=== PATIENT | female | born 1970 | race Caucasian/White ===

== ENCOUNTER 2020-01-12 09:37 | Outpatient (CLI) | payer BC, SELFPAY ==
[2020-01-12 10:00] LABS: Basophils Absolute Auto 0.1 K/mm3 (0.0-0.1); Basophils Percent Auto 1.2 % (0.2-1.2); Eosinophils Absolute Auto 0.2 K/mm3 (0-0.3); Eosinophils Percent Auto 1.9 % (0-4.4); Hematocrit 43.5 % (37.0-47.0); Immature Granulocyte Absolute 0.02 K/mm3 (0.00-0.031); Immature Granulocyte Percent A 0.2 % (0-0.5); Lymphocytes Absolute Auto 2.97 K/mm3 (0.9-3.2); Lymphocytes Percent Auto 29.1 % (18.3-44.2); Mean Corpuscular HGB Conc 34.5 g/dl (32-36); Mean Corpuscular Hemoglobin 31.2 pg (26-34); Mean Corpuscular Volume 90.4 fl (80-100); Mean Platelet Volume 10.6 fl (7.4-10.4); Monocytes Absolute Auto 0.6 K/mm3 (0.1-0.6); Monocytes Percent Auto 5.7 % (2.6-8.5); Neutrophils Absolute Auto 6.3 K/mm3 (1.3-6.7); Neutrophils Percent Auto 61.9 % (45.5-73.1); Platelet Count Result 231 k/mm3 (150-375); Red Blood Count 4.81 M/mm3 (4.2-5.4); Red Cell Distribution Width 12.8 % (11.5-14.5); White Blood Count 10.2 K/mm3 (4.5-10.0)
[2020-01-12 10:12] LABS: Alanine Aminotransferase 45 U/L (4-35); Albumin Level 4.4 g/dL (3.5-5.1); Alkaline Phosphatase 54 U/L (38-126); Anion Gap 4 mmol/L (8-16); Aspartate Amino Transferase 39 U/L (14-36); Bilirubin,Total 0.7 mg/dL (0.2-1.3); Blood Urea Nitrogen 11 mg/dL (7-17); Calcium 9.5 mg/dL (8.4-10.2); Carbon Dioxide 32 mmol/L (22-30); Chloride 103 mmol/L (98-107); Cholesterol 159 mg/dL (0-200); Estimated Glomerular Filt Rate > 60; Glucose 107 mg/dL (65-105); HDL Direct 40 mg/dL; Potassium 4.4 mmol/L (3.4-5.0); Sodium 139 mmol/L (137-145); Triglycerides 142 mg/dL (<150)
[2020-01-12 10:42] LABS: LDL Cholesterol Direct 96 mg/dL
[2020-01-12 11:19] LABS: Folic Acid 9.6 ng/mL (2.76->20)
== END 2020-01-12 09:38 | disposition home or self-care (01) ==
PROVIDERS: PCP Internal Medicine; Visit Provider Internal Medicine
DX: R53.83 Other fatigue (principal)
CPT/HCPCS: 36415; 80053; 80061; 82607; 82746; 84443; 85025

== ENCOUNTER 2020-10-13 14:00 | Outpatient (RCR) | payer BC, SELFPAY ==
--- NOTE | 2020-09-08 15:19 | PTOPEVAL ---
PHYSICAL THERAPY EVALUATION AND PLAN OF CARE 09-08-20 Thank you for referring Federica Goldstein to [facility] for the diagnosis of vestibular rehab. She is scheduled to be seen for therapy? 1-2 x/week for 5 weeks. Please review, sign, date and return this plan of care LUPE. I agree with and certify that the following plan of care is medically necessary. Referring Physician Date Attending Provider: Meek Dove MD CC: to Dr. Russell, per pt request, her general physician PT Outpatient Evaluation Document 09/08/20 14:10 NAEEM (Rec: 09/08/20 15:19 NAEEM [id number]) Past Medical History Source of Past Medical History Patient Neurological History Hx Neurological Disorders No Significant History Cardiovascular History Hx Cardiac Disorders No Significant History Respiratory History Hx Respiratory Disorders No Significant History Gastrointestinal History Hx Gastroesophageal Reflux Disease Yes Genitourinary History Hx Genitourinary Disorders No Significant History Musculoskeletal History Hx Other Musculoskeletal Disorders Yes: TMJ pain after sleeping in recliner with COVID R > L side; Endocrine History Hx Endocrine Disorders No Significant History HEENT History Hx Other HEENT Disorders Yes: wear bifocals; Other History Hx Other Medical Conditions Yes: COVID in Feb 2020, about 2 weeks for recovery, slept 14 hr/day Evaluation Information Problem Diagnosis BPPV/ vestibular Onset Apr 2020 Prior Level of Function Activity Level (Last 3 Months) Occupation medical laborer cook house in [employer] , active-schedule, work with animals,lab work Activity of Daily Living Ability Independent Indoor/Home Mobility Independent Community Mobility Independent Stairs Ability Independent Functional Cognition (Planning, Shopping Independent , Taking Medications) Cooking Yes Cleaning Yes Laundry Yes Shopping Yes Driving Yes Comments Additional Prior Level of Function work 55-60 hours/week, super Comments busy at work; tends to avoid bending forward and being as active with movement of her head; have gained 40# over past few years, due to stress and of her parents; Pain Assessment Timing of Pain Assessment Timing of Pain Assessment Assessment Self Report Self Report Pain Level
--- NOTE | 2020-10-13 14:43 | PTOPEVAL ---
PHYSICAL THERAPY DISCHARGE 10-13-20 Refer to the clinical summary below. All of the goals were achieved; discharge PT services. Thank you for referring Federica Goldstein to [facility] Please review, sign, date and return this Discharge report LUPE. I agree with and certify that the following plan of care is medically necessary. Referring Physician Date Attending Provider: Meek Dove MD CC: Dr Russell, pt general physician, per pt request Document 10/13/20 14:05 NAEEM (Rec: 10/13/20 14:43 NAEEM [id number]) Assessment Status Discharge Subjective Information Federica reports: have some Query Text:As Reported By Patient/ nasal congestion and drainage, Family cold/ allergy; not having any dizziness; L ear is bothering me- when blew my nose, it popped and bulged out ; no problems at work, using the computer, busy worked 13 hours- did all day yesterday without any problems; no problems with lying down and sitting up; no longer have any head tightening or squeezing symptome; when she is tired, has to stop and rest, cannot keep pushing on, like she used to do; she sleeps about 6&1/ 2 to 7 hr/night, but when on vacation slept about 9 hours per night; agreed to discharge from PT services. Pain Assessment Timing of Pain Assessment Timing of Pain Assessment Assessment Self Report Self Report Pain Level 0 Pain Score Pain Score 0: Self Report Vestibular Evaluation Vestibular Testing Vestibular Testing Comments standing: head motion R/L x 5 reps s/s; stand on foam: head R/L and up /down x 5 reps; march in place with eyes open and closed x 10 reps; trunk rotation R/L x 3 reps walking with PT behind her, pt reach to R, grab playing card , state card and return to the L side; PT walking in front of pt; presenting playing card towards her from all angles, pt state card correctly walk h
== END 2020-11-22 13:03 | disposition home or self-care (01) ==
LOC: ANHPT 14:00
PROVIDERS: PCP Internal Medicine; Visit Provider Otolaryngology
DX: R26.89 Other abnormalities of gait and mobility (principal); R42 Dizziness and giddiness
CPT/HCPCS: 97110; 97161

== ENCOUNTER → 2020-10-22 03:44 | Outpatient (CLI) | payer BC, SELFPAY ==
[2020-10-23 01:34] LABS: SARS-CoV-2 RNA PCR Negative
== END ==
PROVIDERS: PCP Internal Medicine; Visit Provider Internal Medicine
DX: Z20.822 Contact with and (suspected) exposure to COVID-19 (principal); J06.9 Acute upper respiratory infection, unspecified
CPT/HCPCS: C9803; U0003; U0005

== ENCOUNTER 2020-10-25 11:15 | Outpatient (CLI) | payer BC, SELFPAY ==
--- NOTE | ~2020-10-25 | XR_ITS ---
EXAMINATION: XR chest 2V DATE: 10/25/2020 11:36 INDICATION: Cough, shortness of breath TECHNIQUE: PA and lateral views of the chest were obtained. COMPARISON: Chest radiograph dated 07/26/2018 FINDINGS: The lungs remain clear with no focal airspace opacities, pulmonary edema, pleural effusion or pneumot horax. The cardiomediastinal silhouette is normal. Mild thoracic spondylosis. IMPRESSION: 1. No acute cardiopulmonary disease. Reviewed, dictated and finalized at location A.
== END 2020-10-25 11:16 | disposition home or self-care (01) ==
LOC: ANHIMG 11:18
PROVIDERS: PCP Internal Medicine; Visit Provider Internal Medicine
DX: R05 Cough (principal); R06.02 Shortness of breath
CPT/HCPCS: 71046

== ENCOUNTER 2020-10-27 20:38 | Emergency (ER) | payer BC, SELFPAY ==
--- NOTE | ~2020-10-27 | XR_ITS ---
XR chest 2V DATE: 10/27/2020 21:08 INDICATION: Palpitations for one week. Sinus issues for 2 weeks. TECHNIQUE: PA and lateral views COMPARISON: 10/25/2020 2 view chest FINDINGS: Normal heart size. Minimal aortic unfolding. No hilar or mediastinal enlargement. No pulmonary infiltrate or consolidation, pleural effusion or pulmonary vascular congestion or pneumo thorax. There is mild dextroscoliosis and degenerative spurring of the thoracic spine. IMPRESSION: No active cardiopulmonary disease Reviewed, dictated and finalized at location A.
[2020-10-27 20:43] VITALS: BP 184/80; PULSE 64; RESP 18; TEMP 36.3; O2SAT 100
--- NOTE | 2020-10-27 20:47 | ECG_ITS ---
Measurements Intervals [place] Rate: 69 P: 30 SD: 158 QRS: -61 QRSD: 97 T: 34 QT: 389 QTc: 419 Interpretive Statements SINUS RHYTHM LEFT AXIS DEVIATION INCOMPLETE RIGHT BUNDLE BRANCH BLOCK POOR R WAVE PROGRESSION, ANTERIOR LEADS BASELINE ARTIFACT- I, II, III, AVR, AVL, AVF BORDERLINE ECG Electronically Signed On 10-28-2020 6:41:28 CDT by Manuel Groves D.O.
[2020-10-27 21:01] LABS: Basophils Absolute Auto 0.1 K/mm3 (0.0-0.1); Basophils Percent Auto 1.1 % (0.2-1.2); Eosinophils Absolute Auto 0.2 K/mm3 (0-0.3); Eosinophils Percent Auto 1.8 % (0-4.4); Hemoglobin 14.2 g/dL (12.0-15.0); Immature Granulocyte Absolute 0.02 K/mm3 (0.00-0.031); Immature Granulocyte Percent A 0.2 % (0-0.5); Lymphocytes Absolute Auto 3.72 K/mm3 (0.9-3.2); Lymphocytes Percent Auto 33.5 % (18.3-44.2); Mean Corpuscular HGB Conc 32.3 g/dl (32-36); Mean Platelet Volume 11.1 fl (7.4-10.4); Monocytes Absolute Auto 0.8 K/mm3 (0.1-0.6); Monocytes Percent Auto 7.6 % (2.6-8.5); Neutrophils Absolute Auto 6.2 K/mm3 (1.3-6.7); Neutrophils Percent Auto 55.8 % (45.5-73.1); Platelet Count Result 224 k/mm3 (150-375); Red Blood Count 4.73 M/mm3 (4.2-5.4); White Blood Count 11.1 K/mm3 (4.5-10.0)
[2020-10-27 21:11] LABS: Prothrombin Time 12.6 Seconds (11.1-14.7)
[2020-10-27 21:14] LABS: Anion Gap 6 mmol/L (8-16); Blood Urea Nitrogen 16 mg/dL (7-17); Calcium 9.2 mg/dL (8.4-10.2); Carbon Dioxide 30 mmol/L (22-30); Chloride 104 mmol/L (98-107); Estimated CRCL calculation 70 ml/min; Estimated Glomerular Filt Rate > 60; Glucose 95 mg/dL (65-110); Sodium 140 mmol/L (137-145)
[2020-10-27 21:26] LABS: Troponin I < 0.012 ng/mL (0.000-0.034)
[2020-10-27 23:35] VITALS: BP 192/107; PULSE 66; RESP 12; TEMP 36.8; O2SAT 100
[2020-10-27] MEDS: ASPIRIN 81 MG CHEWABLE TABLET 324 MG PO (23:45)
[2020-10-27 23:46] VITALS: BP 170/87; PULSE 56; RESP 18; O2SAT 98
--- NOTE | 2020-10-28 00:39 | ED.ARRPALP ---
HPI - Arrhythmia/Palpitations General Chief Complaint: Arrhythmia/Palpitations Stated Complaint: cold sx, heart palpitations, shortness of breath Time Seen by Provider: 10/27/20 23:33 Source: patient History of Present Illness HPI narrative: Patient presents with concerns for palpitations. Patient reports she has had mild congestion and runny nose the beginning of the month which seemed to subside however over the past week or so she has noted increased fatigue shortness of breath and intermittent palpitations in her chest. First becomes more tired with her day-to-day activities. There is no associated chest pain no lightheadedness there is no fevers recent cough, her congestion has resolved. She denies abdominal pain. Related Data Allergies Allergy/AdvReac Type Severity Reaction Status Date / Time Penicillins Allergy Unknown Other Verified 10/27/20 23:44 Review of Systems Review of Systems: CONSTITUTIONAL: Denies fever, chills, or sweats. EYES: Denies visual changes, redness, or discharge. ENT: Denies rhinorrhea, congestion, sore throat, or otalgia. CARDIOVASCULAR: Denies chest pain, or edema. RESPIRATORY: Denies cough or dyspnea. GASTROINTESTINAL: Denies abdominal pain, nausea, vomiting, or diarrhea. GENITOURINARY: Denies dysuria or hematuria. SKIN: Denies rash or itching. MUSCULOSKELETAL: Denies back pain, joint pain, or myalgia. NEUROLOGIC: Denies headache, numbness, dizziness, or weakness. PSYCHIATRIC: Denies anxiety or depression. All systems reviewed & are unremarkable except as noted in HPI and below PMFSH Family History Family History Mother Patient's mother is in good health Father Patient's father is in good health Sibling Patient's brother is in good health Social History Social History Smoking status: Former smoker Second hand tobacco smoke exposure: No Smoking end date: 03/12/85 Alcohol intake: current Exam Narrative: GENERAL: Well-appearing, well-nourished, and in no acute distress. HEAD: Normocephalic, atraumatic. EYES: PERRLA and EOMI. ENT: Nares clear, no rhinorrhea or epistaxis. Mucous membranes moist. NECK: Supple. No masses. No JVD CHEST: Clear to auscultation. No respiratory distress. No wheezes rales or rhonchi HEART: Regular rate and rhythm. No murmur heard. Normal peripheral pulses. ABDOMEN: Soft, nontender, nondistended, normal active bowel sounds. EXTREMITIES: Normal range of motion. No edema. SKIN: Warm, dry, no rash. NEURO: No focal deficits. Alert and oriented x3. PSYCH: Normal mood and affect. Course Reevaluation(s) Reevaluation #1: patient resting comfortably, no arrhythmias captures, labs, img, plan reviewed with question. she is comfortable with the out patient plan. Date: 10/28/20 Time: 04:06 Vital Signs Vital signs: Vital Signs Temperature 36.3 C L 10/27/20 20:43 Pulse Rate 64 10/27/20 20:43 Respiratory Rate 18 10/27/20 20:43 Blood Pressure 184/80 H 10/27/20 20:43 Pulse Oximetry 100 10/27/20 20:43 Temperature 36.8 C 10/27/20 23:35 Pulse Rate 63 10/28/20 03:55 Respiratory Rate 13 10/28/20 03:55 Blood Pressure 142/73 H 10/28/20 03:55 Pulse Oximetry 99 10/28/20 03:55 MDM - Arrhythmia/Palpitations MDM Narrative Medical decision making narrative: H&P as above, vs with hypertension, pt looks clinically well, exam reassuring, labs elevation in TSH, img 25 unremarkable, EKG clinically unremarkable, no arrhythmias captured on cardiac catheterization technologist additional labs/img considered, symptomatic relief available as needed, on reevaluation pt continues to looks clinically well. Suspect hypothyroidism contributing to fatigue, dns ACS, PE, pneumonia, severe sepsis. plan to tx/monitor as op w/ pcm f/u findings/plan discussed with pt, pt agree/comfortable with plan, return precautions given Lab Data Result diagrams: 10/27/20 20:53
[2020-10-28 00:53] VITALS: BP 162/92; PULSE 58; RESP 14; O2SAT 99
[2020-10-28 01:31] VITALS: BP 144/88; PULSE 68; RESP 15; O2SAT 98
[2020-10-28 02:01] VITALS: BP 156/78; PULSE 63; RESP 15; O2SAT 99
[2020-10-28 02:16] VITALS: BP 166/94; PULSE 72; RESP 15; O2SAT 100
[2020-10-28 02:26] LABS: Troponin I < 0.012 ng/mL (0.000-0.034)
[2020-10-28 02:31] VITALS: BP 157/95; PULSE 55; RESP 16; O2SAT 98
--- NOTE | 2020-10-28 03:20 | PC.NURSE ---
Assumed care of pt at this time. Pt resting on stretcher, A&Ox4. Updated pt on POC.
[2020-10-28 03:52] LABS: Free T4 Free Thyroxine Reflex 1.14 ng/dL (0.78-2.19)
[2020-10-28 03:55] VITALS: BP 142/73; PULSE 63; RESP 13; O2SAT 99
[2020-10-28 04:51] LABS: Total Triiodothyronine (T3) 1.25 NG/ML (0.97-1.69)
== END 2020-10-28 04:30 | disposition home or self-care (01) ==
PROVIDERS: Family Medicine; Emergency Provider Emergency Medicine; PCP Internal Medicine
DX: R00.2 Palpitations (principal); E03.9 Hypothyroidism, unspecified; Z87.891 Personal history of nicotine dependence; I45.10 Unspecified right bundle-branch block; R94.31 Abnormal electrocardiogram [ECG] [EKG]
CPT/HCPCS: 36415; 71046; 80048; 84439; 84443; 84480; 84484; 85025; 85610; 85730; 93005; 99284; A9270

== ENCOUNTER 2020-12-08 08:57 | Outpatient (CLI) | payer BC, SELFPAY ==
--- NOTE | 2020-12-08 09:27 | ECHO_ITS ---
Patient Info Name: Federica Goldstein Age: 50 years : 1970 Gender: Female Ht: 62 in Wt: 210 lbs BSA: 2.09 m2 HR: 47 bpm BP: 139 / 88 mmHg Technical Quality: Good Exam Date: 12/08/2020 9:36 AM Exam Location: [facility] Patient Status: Outpatient Admit Date: 12/08/2020 Staff Ordering Physician: Manuel Groves DO Filter Tender Jelly: Vale Vyas RDCS Attending Provider: Manuel Groves DO Referring Physician: Germain NAM; Exam Type: CA echo doppler color flow Study Info Indications - palpitations Complete two-dimensional, color flow and Doppler transthoracic echocardiogram is performed. Summary 1. Complete two-dimensional, color flow and Doppler transthoracic echocardiogram is performed. 2. Left ventricular chamber dimension is normal. 3. Left ventricular systolic function is normal, estimated at 65-70%. 4. The left ventricular diastolic function is normal. 5. E/e' 9 is minimally elevated. 6. Global longitudinal strain is normal at -21.1%. 7. There is trace mitral valve regurgitation. 8. There is mild tricuspid valve regurgitation. 9. No pulmonary hypertension, estimated pulmonary arterial systolic pressure is 30 mmHg. Left Ventricle E/e' 9 is minimally elevated. Global longitudinal strain is normal at -21.1%. Left ventricular chamber dimension is normal. Left ventricular systolic function is normal, estimated at 65-70%. The left ventricular diastolic function is normal. Right Ventricle Right ventricular chamber dimension is normal. Right ventricular systolic function is normal. Left Atria Left atrial chamber dimension is normal. Right Atria Right atrial chamber dimension is normal. Aortic Valve The aortic valve is trileaflet. There is no aortic valve stenosis. There is no aortic valve regurgitation. Pulmonic Valve There is no pulmonic regurgitation. Mitral Valve There is no mitral valve stenosis. There is trace mitral valve regurgitation. Tricuspid Valve There is mild tricuspid valve regurgitation. No pulmonary hypertension, estimated pulmonary arterial systolic pressure is 30 mmHg. Pericardium/Pleural There is no pericardial effusion. Inferior Vena Cava Normal inferior vena cava with >50% collapse upon inspiration consistent with normal right atrial pressure, 5 mmHg. Aorta The aortic root size at the sinus of Valsalva is normal. Left Ventricular Outflow Tract Name Value Normal LVOT 2D LVOT Diameter 2.0 cm LVOT Doppler LVOT Peak Gradient 5 mmHg LVOT Mean Gradient 2 mmHg LVOT VTI 27 cm LVOT VTI/AV VTI Ratio 0.8 LVOT Stroke Volume 88 ml LVOT CO 14.0 l/min LVOT CI 6.7 l/min/m2 Pulmonic Valve Name Value Normal PV Doppler
--- NOTE | 2020-12-08 10:27 | EST_ITS ---
Patient Info Name: Federica Goldstein Age: 50 years : 1970 Gender: Female Ht: 62 in Wt: 210 lbs BSA: 2.09 m2 HR: 80 bpm BP: 104 / 83 mmHg Heart Rhythm: Sinus Rhythm Exam Date: 12/08/2020 10:36 AM Exam Location: [facility] Stress Patient Status: Outpatient Admit Date: 12/08/2020 Staff Ordering Physician: Manuel Groves DO Attending Provider: Manuel Groves DO Exercise Technologist: Josie Mtz CT Exercise Physician: Manuel Groves DO Exam Type: CA stress test treadmill Study Info An exercise stress test was performed. Summary 1. 1. Negative [place] exercise stress test for ischemic ST changes by ECG criteria. 2. 2. Good functional capacity, achieving 10 METs of workload. 3. 3. Appropriate HR response to exercise. 4. 4. Appropriate HR recovery at 1 minute post exercise. 5. 5. No imaging with stress testing. 6. 6. Patient informed of the above results. Protocol: [place] Stress ECG Details Stage: REST Duration (min): 1 min : 3 sec Speed (mph): 0.0 Grade (%): 0 HR (bpm): 53 SBP (mmHg): 121 DBP (mmHg): 84 METS: --- Stage: REST Duration (min): 1 min : 29 sec Speed (mph): 0.0 Grade (%): 0 HR (bpm): 56 SBP (mmHg): 121 DBP (mmHg): 84 METS: --- Stage: REST Duration (min): 13 min : 12 sec Speed (mph): 0.0 Grade (%): 0 HR (bpm): 55 SBP (mmHg): 121 DBP (mmHg): 84 METS: --- Stage: STAGE 1 Duration (min): 1 min : 0 sec Speed (mph): 1.7 Grade (%): 10 HR (bpm): 88 SBP (mmHg): 121 DBP (mmHg): 84 METS: --- Stage: STAGE 1 Duration (min): 2 min : 0 sec Speed (mph): 1.7 Grade (%): 10 HR (bpm): 101 SBP (mmHg): 121 DBP (mmHg): 84 METS: --- Stage: STAGE 1 Duration (min): 3 min : 0 sec Speed (mph): 1.7 Grade (%): 10 HR (bpm): 101 SBP (mmHg): 160 DBP (mmHg): 88 METS: --- Stage: STAGE 2 Duration (min): 1 min : 0 sec Speed (mph): 2.5 Grade (%): 12 HR (bpm): 116 SBP (mmHg): 160 DBP (mmHg): 88 METS: --- Stage: STAGE 2 Duration (min): 2 min : 0 sec Speed (mph): 2.5 Grade (%): 12 HR (bpm): 128 SBP (mmHg): 200 DBP (mmHg): 88 METS: --- Stage: STAGE 2 Duration (min): 3 min : 0 sec Speed (mph): 2.5 Grade (%): 12 HR (bpm): 133 SBP (mmHg): 200 DBP (mmHg): 88 METS: --- Stage: STAGE 3 Duration (min): 1 min : 0 sec Speed (mph): 3.4 Grade (%): 14 HR (bpm): 145 SBP (mmHg): 200 DBP (mmHg): 88 METS: --- Stage: STAGE 3 Duration (min): 2 min : 0 sec Speed (mph): 3.4 Grade (%): 14 HR (bpm): 151 SBP (mmHg): 199 DBP (mmHg): 96 METS: --- Stage: STAGE 3 Duration (min): 2 min : 11 sec Speed (mph): 3.4 Grade (%): 14 HR (bpm): 152 SBP (mmHg): 199 DBP (mmHg): 96 METS: --- Stage: RECOVERY Duration (min): 0 min : 48 sec
== END 2020-12-08 08:58 | disposition home or self-care (01) ==
PROVIDERS: PCP Internal Medicine; Visit Provider Internal Medicine Cardiovascular Disease
DX: R07.9 Chest pain, unspecified (principal); R00.2 Palpitations
CPT/HCPCS: 93017; 93306

== ENCOUNTER 2021-01-18 16:32 | Outpatient (CLI) | payer BC, SELFPAY ==
--- NOTE | ~2021-01-18 | XR_ITS ---
XR lumbar spine 6V w bending 01/18/2021 17:18 Indication: Low back pain Procedure: 7 views lumbar spine Comparison: No prior studies for comparison. Findings: Normal lumbar lordosis. Mild facet hypertrophy are present at L4-5 and L5-S1. No significan t alteration of alignment with flexion/extension. No spondylolisthesis. Mild disc narrowing at L5-S1 and L3-4. There is bilateral L5 spondylolysis without spondylolisthesis. 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 Reviewed, dictated and finalized at location A. 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
--- NOTE | ~2021-01-18 | XR_ITS ---
XR hip RT 2V w AP pelvis 01/18/2021 17:18 Indication: Right hip and groin pain Procedure: AP pelvis and 3 views right hip Comparison: No prior studies for comparison. Findings: Mild bilateral osteoarthritis of the hips. No fracture, subluxation or dislocation. Sacral foramen are symmetric. Pelvic rings are intact. No soft tissue abnormality. Impression: 1: Mild symmetric osteoarthritis of the hips. Reviewed, dictated and finalized at location A. TAL PROJECT COORDINATOR Impression: 1: Mild symmetric osteoarthritis of the hips.
== END 2021-01-18 16:33 | disposition home or self-care (01) ==
LOC: ANHIMG 16:38
PROVIDERS: PCP Internal Medicine; Visit Provider Physician Assistant
DX: R10.31 Right lower quadrant pain (principal); M16.0 Bilateral primary osteoarthritis of hip; M47.816 Spondylosis without myelopathy or radiculopathy, lumbar region
CPT/HCPCS: 72114; 73502

== ENCOUNTER 2021-01-20 09:45 | Outpatient (CLI) | payer BC, SELFPAY ==
--- NOTE | 2021-01-21 13:41 | WPDPFTINT ---
PFT Procedure Performed PFT Procedure Performed Spirometry with Pre/Post Bronchodilator Plethysmography (Lung Vol) Diffusing Cap (DLCO) Flow Vol Loop PFT Interpretation Lung volumes were measured with the body plethysmography method. The lung volumes are unremarkable. Spirometry showed normal expiratory flow rates and a normal FEV1 to FVC ratio of 85%. Following administration of a bronchodilator, there was no significant increase in expiratory flow rates. Lung diffusion capacity is within the normal range at 84% predicted. The flow volume loop is unremarkable. Impression: Lung volumes, spirometry, and lung diffusion capacity all within the normal range.
== END 2021-01-20 09:46 | disposition home or self-care (01) ==
LOC: ANHPFT 09:50
PROVIDERS: PCP Internal Medicine; Visit Provider Internal Medicine Pulmonary Disease
DX: R06.02 Shortness of breath (principal)
CPT/HCPCS: 94060; 94726; 94729

== ENCOUNTER → 2021-11-05 00:43 | Outpatient (CLI) | payer BC, SELFPAY ==
[2021-11-05 12:05] LABS: Influenza A QL RT-PCR Negative (Negative); Influenza B QL RT-PCR Negative (Negative); SARS-CoV-2 RNA PCR Negative
== END ==
PROVIDERS: PCP Internal Medicine; Visit Provider Internal Medicine
DX: R68.89 Other general symptoms and signs (principal); Z20.822 Contact with and (suspected) exposure to COVID-19
CPT/HCPCS: 87502; C9803; U0003; U0005

== ENCOUNTER → 2021-11-08 10:35 | Outpatient (CLI) | payer BC, SELFPAY ==
--- NOTE | ~2021-11-08 | XR_ITS ---
XR chest 2V DATE: 11/08/2021 10:47 INDICATION: Cough TECHNIQUE: 2 views COMPARISON: 10/27/2020 PA and lateral chest FINDINGS: Normal heart size. No hilar or mediastinal enlargement. No pulmonary infiltrate or consolid ation, pleural effusion or pulmonary vascular congestion or pneumothorax. Mild thoracic dextroscoliosis and degenerative spurring. IMPRESSION: No active cardiopulmonary disease Reviewed, dictated and finalized at location B.
== END ==
PROVIDERS: PCP Internal Medicine; Visit Provider Internal Medicine
DX: R05.9 Cough, unspecified (principal)
CPT/HCPCS: 71046

== ENCOUNTER 2023-05-17 09:29 | Outpatient (CLI) | payer BC, SELFPAY ==
--- NOTE | ~2023-05-17 | MM_ITS ---
EXAMINATION: MM screening [facility] BI w joseph HISTORY: Screening mammogram TECHNIQUE: Craniocaudal and mediolateral oblique 3-D tomosynthesis images were obtained and synthetic 2-D images were generated. CAD analysis was submitted and interpreted. COMPARISON: 02/05/2019 bilateral screening mammogram BREAST PARENCHYMAL COMPOSITION: The breasts are heterogeneously dense, which may obscure small masses . FINDINGS: Stable fibroglandular asymmetry since 02/05/2019. Circumscribed approximately 10 mm mass is noted posteriorly in the lower outer quadrant of the right breast. Diagnostic right mammogram and right breast ultrasound examination are recommended. No suspicious mass, architectural distortion, malignant calcification, skin thickening or retraction or significant new or developing density of either breast is evident otherwise. IMPRESSION: 1. Approximately 10 mm mass in posterior lower outer quadrant of right breast 2. Diagnostic right mammogram and right breast ultrasound examination are recommended BI-RADS Category 0: Incomplete: Needs additional imaging evaluation. Reviewed, dictated and finalized at location A. PATIONAL THERAPIST PER DIEM IMPRESSION: 1. Approximately 10 mm mass in posterior lower outer quadrant of right breast 2. Diagnostic right mammogram and right breast ultrasound examination are recom mended BI-RADS Category 0: Incomplete: Needs additional imaging evaluation.
== END 2023-05-17 09:30 | disposition home or self-care (01) ==
PROVIDERS: PCP Family Medicine; Visit Provider Nurse Practitioner
DX: Z12.31 Encounter for screening mammogram for malignant neoplasm of breast (principal); R92.8 Other abnormal and inconclusive findings on diagnostic imaging of breast
CPT/HCPCS: 77063; 77067

== ENCOUNTER 2023-06-27 12:14 | Outpatient (CLI) | payer BC, SELFPAY ==
--- NOTE | ~2023-06-27 | MMUS_ITS ---
EXAMINATION: MM diagnostic [facility] RT w joseph, US breast RT limited HISTORY: Follow-up right breast mass TECHNIQUE: Additional 3-D tomosynthesis images of the right breast were performed and synthetic 2-D i mages were generated. CAD analysis was submitted and interpreted. High resolution Limited right breas t ultrasound was performed. COMPARISON: Comparison to multiple prior studies sequentially, with oldest reviewed study dated 01/11. BREAST PARENCHYMAL COMPOSITION: Not dense: There are scattered areas of fibroglandular density. FINDINGS: MAMMOGRAPHIC FINDINGS: There is a mass in the lower outer quadrant of the right breast posteriorly. There are no suspicious calcifications or architectural distortion. ULTRASOUND: Limited right breast ultrasound: At 9:30, 6 cm from the nipple, heterogeneous cluster of soft tissue which is partially cystic measuring up to 6 mm, likely benign cluster of microcysts. At 9:00 near the nipple there is a small cluster of microcysts measuring 4 mm. IMPRESSION: 1. Probable benign findings of the left breast. 2. Recommend 6 month follow-up diagnostic right mammogram and right breast ultrasound. BI-RADS category 3, probably benign findings. Reviewed, dictated and finalized at location B. IMPRESSION: 1. Probable benign findings of the left breast. 2. Recommend 6 month follow-up diagnostic right mammogram and right breast ultr asound. BI-RADS category 3, probably benign findings.
== END 2023-06-27 12:15 | disposition home or self-care (01) ==
LOC: ANHIMG 12:19
PROVIDERS: PCP Family Medicine; Visit Provider Nurse Practitioner
DX: N63.13 Unspecified lump in the right breast, lower outer quadrant (principal); R92.8 Other abnormal and inconclusive findings on diagnostic imaging of breast
CPT/HCPCS: 76642; 77061; 77065; G0279

== ENCOUNTER 2024-09-22 12:25 | Outpatient (CLI) | payer BC, SELFPAY ==
--- NOTE | ~2024-09-22 | MMUS_ITS ---
EXAMINATION: MM diagnostic [facility] BI w joseph, US breast RT limited HISTORY: Follow-up right breast mass TECHNIQUE: Additional 3-D tomosynthesis images of the breasts were performed and synthetic 2-D images were generated. CAD analysis was submitted and interpreted. High resolution Limited right breast ult rasound was performed. COMPARISON: Comparison to multiple prior studies sequentially, with oldest reviewed study dated 05/2015. BREAST PARENCHYMAL COMPOSITION: Not dense: There are scattered areas of fibroglandular density. FINDINGS: MAMMOGRAPHIC FINDINGS: Stable asymmetry in the upper outer quadrant of the right breast. No new masses, calcifications or ar chitectural distortion in either breast to suggest malignancy. There are benign bilateral breast calc ifications. ULTRASOUND: Limited right breast ultrasound: At 9:00, 2 cm from the nipple there is a 5 mm cyst. At 9:30, 6 cm fr om the nipple there is a cluster of microcysts measuring 6 mm. No suspicious masses to suggest malign laquita. IMPRESSION: 1. No evidence for malignancy in the right breast. Benign findings. 2. Routine yearly screening mammogram and regular clinical breast examination are recommended. BI-RADS Category 2: Benign finding(s). Reviewed, dictated and finalized at location B. IMPRESSION: 1. No evidence for malignancy in the right breast. Benign findings. 2. Routine yearly screening mammogram and regular clinical breast examination a re recommended. BI-RADS Category 2: Benign finding(s).
== END 2024-09-22 12:26 | disposition home or self-care (01) ==
LOC: ANHIMG 12:35
PROVIDERS: PCP Family Medicine; Visit Provider Nurse Practitioner
DX: R92.8 Other abnormal and inconclusive findings on diagnostic imaging of breast (principal)
CPT/HCPCS: 76642; 77062; 77066; G0279

== ENCOUNTER 2025-01-29 00:37 | Day surgery (SDC) | payer BC, SELFPAY ==
[2025-01-14 09:55] VITALS: BMI 39.5
[2025-01-29 08:21] VITALS: BP 146/87; PULSE 73; RESP 18; TEMP 36.2; O2SAT 97
[2025-01-29] MEDS: LACTATED RINGERS 1,000 ML 150 ML IV CONT (08:31)
--- NOTE | 2025-01-29 08:31 | WPDANESEPPF ---
Anes - Initial Pre Proc Eval Procedure: Operation Date: 01/29/25 09:30 Proposed Procedures p Screening Colonoscopy - Hermes Pacheco MD Date/Time: 01/29/25 08:31 Surgeon: Hermes Pacheco MD Pre Op Diagnosis: Screening Patient Data Age: 54 Gender: F Height: 1.57 m Weight: 96.8 kg Last Vital Signs Temp 36.2 C L 01/29/25 08:21 Pulse 73 01/29/25 08:21 Resp 18 01/29/25 08:21 BP 146/87 H 01/29/25 08:21 Pulse Ox 97 01/29/25 08:21 O2 Del Method Room Air 01/29/25 08:21 Allergies Allergy/AdvReac Type Severity Reaction Status Date / Time Penicillins Allergy Unknown Other Verified 01/29/25 08:20 Home Medications ?Medication ?Instructions ?Recorded ?Confirmed ?Type escitalopram oxalate 10 mg tablet 10 mg PO DAILY #30 tabs 10/20/22 01/29/25 Rx (Lexapro) levothyroxine 25 mcg tablet 50 mcg PO DAILY 12/31/23 01/29/25 History (Synthroid) Patient hx anesthesia problems: none Family hx anesthesia problems: none Results Review: All pre-operative results and documents have been reviewed as part of the pre-operative evaluation. [facility] Past Medical History Medical History (Updated 01/29/25 @ 08:31 by Bunny Roche MD) Morbid obesity History of COVID-19 Family History Family History Mother Patient's mother is in good health Father Patient's father is in good health Sibling Patient's brother is in good health Social History Social History Smoking status: Former smoker Second hand tobacco smoke exposure: No Smoking end date: 03/12/85 Alcohol intake: current Do You Feel Safe in your Home?: Yes Lack of Transportation: No Lack of Food: Never True Current Housing: I Have Housing Concerned About Future Housing: No Difficulty Paying Gas/Electric Bills: No Difficulty Paying for Meds: No Currently Unemployed: No Education: Associate Degree Difficulty w/ Childcare or Family Care: No Anes - Eval Final PreProcedure Day of Procedure 01/29/25 08:31 Patient weight: morbidly obese Heart: regular rate and rhythm Lungs: clear to auscultation Airway: Mallampati scale class II Neurological: alert and oriented Last oral intake: >/= 8 hours ASA classification: III Emergent: no Anesthetic plan: proceed Anesthesia type and monitoring: general GIVS and standard monitoring Results Review: All pre-operative results and documents have been reviewed as part of the pre-operative evaluation. Informed Consent: The patient's anesthetic plan and its attendant risks and benefits were discussed with the patient/family/POA. Questions were solicited and answers provided to the satisfaction of the patient/family/POA.
--- NOTE | 2025-01-29 08:57 | P.HP_ITS ---
History of Present Illness History of Present Illness Consent: Risks, benefits, and alternatives have been discussed and questions answered. Patient agrees to proceed with procedure. Chief complaint: Screening Narrative: Federica Goldstein is a 54 year old female here for colonoscopy, father had colon cancer Review of Systems Review of Systems: All systems reviewed & are unremarkable except as noted in HPI and below PMFSH Past Medical History Medical History (Updated 01/29/25 @ 08:58 by Hermes Pacheco MD) Family history of colon cancer in father Morbid obesity History of COVID-19 Family History Family History Mother Patient's mother is in good health Father Patient's father is in good health Sibling Patient's brother is in good health Social History Social History Smoking status: Former smoker Second hand tobacco smoke exposure: No Smoking end date: 03/12/85 Alcohol intake: current Do You Feel Safe in your Home?: Yes Lack of Transportation: No Lack of Food: Never True Current Housing: I Have Housing Concerned About Future Housing: No Difficulty Paying Gas/Electric Bills: No Difficulty Paying for Meds: No Currently Unemployed: No Education: Associate Degree Difficulty w/ Childcare or Family Care: No Meds Home Medications and Allergies Home Medications ?Medication ?Instructions ?Recorded ?Confirmed ?Type escitalopram oxalate 10 mg tablet 10 mg PO DAILY #30 t abs 10/20/22 01/29/25 Rx (Lexapro) levothyroxine 25 mcg tablet 50 mcg PO DAILY 12/31/23 1 03/31/24 History (Synthroid) Allergies Allergy/AdvReac Type Severity Reaction Status Date / Time Penicillins Allergy Unknown Other Verified 01/29/25 08:20 Vital Signs Vital Signs - 24 hr 01/29/25 08:21 Temperature 97.2 F L Pulse Rate 73 Respiratory Rate 18 Blood Pressure 146/87 H Pulse Oximetry 97 Oxygen Delivery Room Air Exam Const: General: comfortable and no acute distress HENMT: Face/Nose/Sinus: Normal nares present Eyes: General: appearance normal, both eyes and all related structures Resp: Auscultation: clear to auscultation bilaterally Cardio: Rate: regular rate Rhythm: regular rhythm GI: Inspection: non-distended GI Palp: Yes Soft to palpation Skin: General skin exam: normal color Extrem: General: normal to inspection Psych: Mental Status: mental status grossly normal Assessment and Plan Assessment and plan (1) Family history of colon cancer in father: Code(s): Z80.0 - Family history of malignant neoplasm of digestive organs Status: Acute Assessment and Plan: colonoscopy
--- NOTE | 2025-01-29 09:09 | S_PTH ---
PATIENT: Federica Goldstein LOC: [facility]#:[id number] AGE/SX: 54/F ROOM: RE01/29/[address]: Hermes Pacheco MD : 1970 BED: DIS: 01/29/2025 SPEC #: [id number] RECD: 01/29/25 11:41 STATUS: HARDIK REKyleigh #: [id number] JUDITH: 01/29/25 09:[address]: Hermes Pacheco DEPT: [facility] Surgical RECD BY: Yudith Acevedo ENTERED: 01/29/25 11:41 SP TYPE: Surgical OTHR DR: Bolivar HollingsworthMD Tissues: A - Colon Polypectomy Procedures: Hematoxylin and Eosin Stain Gross and Microscopic Level 4
[2025-01-29 09:11] VITALS: BP 105/61; PULSE 62; RESP 17; O2SAT 95
[2025-01-29 09:21] VITALS: BP 124/61; PULSE 55; RESP 16; O2SAT 97
[2025-01-29 09:31] VITALS: BP 131/73; PULSE 56; RESP 15; O2SAT 100
== END 2025-01-29 09:42 | disposition home or self-care (01) ==
PROVIDERS: PCP Family Medicine; Referring Provider Nurse Practitioner; Visit Provider Internal Medicine Gastroenterology
PROC: 0DJD8ZZ Inspection of Lower Intestinal Tract, Via Natural or Artificial Opening Endoscopic (ICD-10-PCS; CPT 45378; principal; 2025-01-29 09:30)
DX: Z12.11 Encounter for screening for malignant neoplasm of colon (principal); D12.2 Benign neoplasm of ascending colon; K64.8 Other hemorrhoids; K57.30 Diverticulosis of large intestine without perforation or abscess without bleeding; E66.01 Morbid (severe) obesity due to excess calories; Z68.39 Body mass index [BMI] 39.0-39.9, adult; Z87.891 Personal history of nicotine dependence; Z80.0 Family history of malignant neoplasm of digestive organs
CPT/HCPCS: 45385; 88305; J2003; J2704; J7120